=== PATIENT | male | born 1975 | race African-American/Black ===

== ENCOUNTER 2020-05-06 16:26 | Emergency (ER) | payer OTHER ==
[2020-05-07 11:17] LABS: SARS-CoV-2 MS2 Positive; SARS-CoV-2 N Gene Positive; SARS-CoV-2 S Gene Positive; SARS-CoV-2 by NAA DETECTED (NotDetected); SARS-CoV-2 orf1ab Positive
== END 2020-05-06 18:01 | disposition home or self-care (01) ==
LOC: ERS 16:26
DX: U07.1 COVID-19 (principal); Z87.891 Personal history of nicotine dependence
CPT/HCPCS: 87635; 99283; U0003